=== PATIENT | female | born 2000 | race Caucasian/White ===

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

== ENCOUNTER 2021-06-23 18:47 | Observation (INO) | payer OTHER ==
[~2021-06-23] VITALS: Ht 165.1 cm; Wt 93.9 kg
[2021-06-23] MEDS ORDERED: PNV91TAB8 PO (22:07)
[2021-06-23] MEDS ORDERED: cefTRIAXone 1,000 MG VIAL IM SCH (22:35)
[2021-06-23] MEDS ORDERED: LIDOCAINE MPF 1% 5 ML ONE (23:07)
== END 2021-06-23 23:40 | disposition home or self-care (01) ==
LOC: MLD 21:45
PROVIDERS: ADMIT Obstetrics & Gynecology; ATTEND Obstetrics & Gynecology
DX: O62.9 Abnormality of forces of labor, unspecified (principal); Z3A.35 35 weeks gestation of pregnancy
CPT/HCPCS: 59025; 96372; G0378; J0696; J2001